=== PATIENT | male | born 1960 | race Caucasian/White ===

== ENCOUNTER → 2017-03-28 | Outpatient (CLI) | payer BC ==
--- NOTE | ~2017-03-28 | US85 ---
[facility] A Service of [facility] RADIOLOGY TEXT RESULTS PATIENT: LAMBERTO CONTRERAS LOCATION: [facility] : 56 UNIT #: [id number] AGE: [address]: Daniele Vogt Jr, MD SEX: M ORDER DR: [id number] [facility] [address] [place], [place] [address] [id number] O MR#: [id number] Acc #: [id number] NAME: LAMBERTO CONTRERAS : 1960 SEX: M STUDY DATE/TIME: 03/28/20171852 UNIT: [facility] ROOM: STUDY DESCRIPTION: [facility] [employer] [facility] Attending Physician: Daniele Vogt Jr., M.D. Referring Physician: Daniele Vogt Jr., M.D. Ordering Physician: Daniele Vogt Jr., M.D. Primary Care Physician: Maximiliano Mckeon M.D. MEDICAL IMAGING REPORT This report is preliminary unless electronic signature is present EXAM Right leg vein Doppler on 03/28/2017 at 1853. INDICATION Right thumb pain for 2 weeks. TECHNIQUE Venous ultrasound examination of the right lower extremity was performed using grayscale, spectral Doppler and color flow Doppler imaging. FINDINGS The examination is negative. There is no evidence of right lower extremity deep venous thrombus from the groin to the lower calf. Visualized greater saphenous vein is also patent. IMPRESSION Negative examination. No evidence of right lower extremity deep venous thrombosis. Dictated by... Regulo Holm Jr., M.D. THIS IS AN ELECTRONICALLY VERIFIED REPORT Regulo Holm Jr., M.D. at 03/29/2017 9:21 PM HAILE/ken TD: 03/29/2017 11:34 JOB #: [id number] MEDICAL IMAGING REPORT Page 1 of 1 COPY
--- NOTE | ~2017-03-28 | CR170 ---
[facility] A Service of [facility] RADIOLOGY TEXT RESULTS PATIENT: LAMBERTO CONTRERAS LOCATION: [facility] : 56 UNIT #: [id number] AGE: [address]: Daniele Vogt Jr, MD SEX: M ORDER DR: [id number] [facility] [address] [place], [place] [address] [id number] O MR#: [id number] Acc #: [id number] NAME: LAMBERTO CONTRERAS : 1960 SEX: M STUDY DATE/TIME: 03/28/2017 18:42 UNIT: [facility] ROOM: STUDY DESCRIPTION: CR Knee 2 Views Rt Attending Physician: Daniele Vogt Jr., M.D. Referring Physician: Daniele Vogt Jr., M.D. Ordering Physician: Daniele Vogt Jr., M.D. Primary Care Physician: Maximiliano Mckeon M.D. MEDICAL IMAGING REPORT This report is preliminary unless electronic signature is present EXAM Right knee 2 views 03/28/2017 HISTORY Right knee pain medially for 2 years worsening in the last 6 months, injured knee climbing a ladder 2 years ago. FINDINGS 2 views of the right knee demonstrate no fracture. The bones are normally mineralized. Small osteophytes are seen along the posterior aspect of the patella. There is no joint effusion. IMPRESSION Minimal degenerative change involving the patellofemoral joint. Otherwise negative right knee. Dictated by... Dean Goodwin M.D. THIS IS AN ELECTRONICALLY VERIFIED REPORT Dean Goodwin M.D. at 03/30/2017 9:23 AM KRT/to TD: 03/29/2017 11:44 JOB #: [id number] MEDICAL IMAGING REPORT Page 1 of 1 COPY
== END | disposition home or self-care (01) ==
LOC: CRAD 18:24
DX: M25.561 Pain in right knee (principal)
CPT/HCPCS: 73560; 93971